=== PATIENT | female | born 1965 | race Caucasian/White ===

== ENCOUNTER → 2017-05-01 | Outpatient (CLI) | payer OTHER ==
--- NOTE | ~2017-05-01 | PFR/MVV ---
[facility] [place] [address] PULMONARY FUNCTION MVV/REPORT Name: TAVO REDDY Room #: REG [facility] Aamir.#: [id number] Admission: 05/01/17 Attend Phys: Physician not on staff Discharge: Date of : 63 Report #: [id number] THIS REPORT FOR: //name// >> SPIROMETRY: (BTPS) Height: 64 in cm Weight: 215 lbs kg Exam Date: 05/01/17 PRE-RX POST-RX PRED BEST %PRED BEST %PRED %CHG FVC LITERS . 3.16 . 1.56 . 49 . 1.56 . 49 . 0 FEV1 LITERS . 2.60 . 1.29 . 50 . 1.31 . 50 . 1 FEV1/FVC % . 84 . 83 . 99 . 84 . 100 . 1 ZRF92-39% L/Sec . 2.88 . 1.60 . 55 . 1.75 . 61 . 10 PEF L/SEC . 5.93 . 5.40 . 91 . 6.34 . 107 . 17 FEF50/FIF50 UNITLESS . <1.00 . 3.38 . . 4.00 . . 19 MVV L/Min . 98 . 34 . 35 f 1/Min . . 125 . >> LUNG VOLUMES: (BTPS) PRE-RX POST-RX PRED AVG %PRED AVG %PRED %CHG VC Liters . 3.16 . 1.57 . 50 . . . TLC Liters . 4.96 . 2.79 . 56 . . . RV Liters . 1.77 . 1.22 . 69 . . . RV/TLC % . 35 . 44 . 123 . . . FRC PL Liters . 2.24 . 1.70 . 76 . . . FRC N2 Liters . 2.24 . . . . . ERV Liters . . 0.48 . . . . IC Liters . . 1.05 . . . . >> DIFFUSION: DLCO ml/Min/mmHg . 25.7 . 7.2 . 28 . . . DL Dina ml/Min/mmHg . 25.7 . 7.2 . 28 . . . DLCO/VA ml/Min/mmHg . 4.04 . 5.09 . 126 . . . VA Liters . . 1.42 . . . . COMMENTS: COMMENTS: >> RESISTANCE: [facility] [address] [place] [address] PULMONARY FUNCTION MVV/REPORT Name: TAVO REDDY Room #: REG Yeni Scales#: [id number] Admission: 05/01/17 Attend Phys: Physician not on staff Discharge: Date of : 63 Report #: [id number] PRE-RX PRED AVG %PRED Raw Total cmH20/L/Sec . . 7.95 . Raw Insp cmH20/L/Sec . . 11.73 . Raw Exp cmH20/L/Sec . . 14.79 . Raw cmH20/L/Sec . 1.75 . 3.10 . 177 Gaw L/Sec/cmH20 . 0.538 . 0.323 . 60 sRaw cmH20 Sec . 3.92 . 4.40 . 112 sGaw l/cmH20 Sec . 0.255 . 0.227 . 89 Vtq Liters . . 1.42 . # = OUTSIDE 95% CONFIDENCE INTERVAL CALIBRATION: PRED: 3.00 ACTUAL: EXP 3.01 INSP 3.02 [facility]OL10-06 [facility] N-1804-4 >> INTERPRETATION/IMPRESSION: CC: [facility] physician/PCP FRANCESCA FERGUSON Physician staff DATE OF SERVICE: 05/01/2017 NOTATION: Full pulmonary function studies reveal moderate restriction. DLCO is severely reduced. No significant change with bronchodilator. Consider further evaluation of etiologies. ASSESSMENT: Restrictive lung disease. <ELECTRONICALLY SIGNED> By: Jose Cruz Sheriff MD 07/03/17 1123 Jose Cruz Sheriff MD /nt
== END ==
LOC: PUL 04-24 14:10
DX: J84.9 Interstitial pulmonary disease, unspecified (principal)